=== PATIENT | male | born 1945 | race Caucasian/White ===

== ENCOUNTER → 2020-10-02 | Outpatient (REF) | LOC: M LAB LCGH 12:45 | PROVIDERS: ATTEND Specialist | DX: Z13.89 Encounter for screening for other disorder (principal) ==

== ENCOUNTER → 2023-09-04 | Outpatient (CLI) | payer MEDICARE | LOC: M PLARAD 14:29 | PROVIDERS: ATTEND Neuromusculoskeletal Medicine & OMM | DX: R91.8 Other nonspecific abnormal finding of lung field (principal) | CPT/HCPCS: 78815; A9552 ==